=== PATIENT | female | born 1990 | race American Indian/Alaskan Native ===

== ENCOUNTER 2019-08-30 18:07 | Emergency (ER) | payer MEDICAID ==
--- NOTE | 2019-08-30 19:16 | Event Note ---
ED Screening Note Date of service: 08/30/19 Time: 19:15 ED Screening Note: 28 y o f presents with left knee swelling and pain s/p injury on a swing today This initial assessment/diagnostic orders/clinical plan/treatment(s) is/are subject to change based on patients health status, clinical progression and re- assessment by fellow clinical providers in the ED. Further treatment and workup at subsequent clinical providers discretion. Patient/guardian urged not to elope from the ED as their condition may be serious if not clinically assessed and managed. Initial orders include: knee xr acc eval
[2019-08-30 19:17] VITALS: BP 120/91
--- NOTE | 2019-08-30 20:22 | XRay Report ---
LEFT KNEE 3 VIEWS INDICATION / CLINICAL INFORMATION: swelling and pain. COMPARISON: None available. FINDINGS: No fracture or other significant skeletal abnormality. Lateral view shows no appreciable joint fluid. Signer Name: Seth Raygoza MD Signed: 08/30/2019 8:17 PM Workstation Name: [id number]
[2019-08-30] MEDS ORDERED: IBUPROFEN 400 MG TAB PO ONE (22:19)
[2019-08-30] MEDS ORDERED: HYDROcodone/ACETAMINOPHEN 5-325 MG TAB PO ONE (22:19)
--- NOTE | 2019-08-30 22:31 | Emergency Department Report ---
ED Fall HPI - General Chief Complaint: Extremity Injury, Lower Stated Complaint: LT KNEE INJURY Source: patient Mode of arrival: Stretcher - History of Present Illness Initial Comments: Patient is a 28-year-old female with a history of chronic seizures and congenital arthrogryposis who presents to the ED with complaint of acute onset severe left knee pain and swelling after she tripped and fell down on the field about 6 hours ago when playing with her 7-year-old child. Patient states that the swelling and the pain worsened in the last 2 hours side that bearing weight on the left leg makes the pain in the left knee worse. Patient denies loss of consciousness, syncope, dizziness, numbness and tingling of left leg, back pain, neck pain, head injury, abdominal pain, or headache. MD Complaint: fall, other (left knee pain and swelling) -: Sudden, hour(s) (6) Fall From: standing, other (running in the field and fell down) When Fall Occurred: 4-6 hours [employer] Fall Witnessed: yes, by family Place Fall Occurred: other (outdoors) Loss of Consciousness: none Prolonged Down Time?: no Symptoms Prior to Fall: none Location: other (left knee) Location - Extremities: Left: Knee (left knee pain) Severity: severe Severity scale (0 -10): 7 Quality: sharp, aching Context: tripped/slipped Associated Symptoms: denies: headache, neck pain, numbness, weakness, chest paint, abdominal pain, unable to walk, lightheaded - Related Data Home Medications Medication Instructions Recorded Confirmed Last Taken LaMICtal 100 mg PO QAM 01/28/15 01/28/15 Unknown LaMICtal 125 mg PO QPM 01/28/15 01/28/15 Unknown Previous Rx's Medication Instructions Recorded Last Taken Type levETIRAcetam [Keppra] 500 mg PO BID #60 tablet 01/28/15 Unknown Rx Acetaminophen/Codeine [Tylenol 1 tab PO Q6H PRN #12 tab 08/30/19 Unknown Rx /Codeine # 3 tab] Ibuprofen [Motrin] 400 mg PO Q8H PRN #24 tablet 08/30/19 Unknown Rx Allergies Allergy/AdvReac Type Severity Reaction Status Date / Time No Known Allergies Allergy Verified 08/30/19 18:09 ED Review of Systems ROS: Stated complaint: LT KNEE INJURY Other details as noted in HPI Constitutional: denies: chills, fever Eyes: denies: eye pain, eye discharge, vision change ENT: denies: ear pain, throat pain Respiratory: denies: cough, shortness of breath, wheezing Cardiovascular: denies: chest pain, palpitations Endocrine: no symptoms reported Gastrointestinal: denies: abdominal pain, nausea, diarrhea Genitourinary: denies: urgency, dysuria, discharge Musculoskeletal: joint swelling (left knee), arthralgia (left knee). denies: back pain Skin: denies: rash, lesions Neurological: denies: headache, weakness, paresthesias Psychiatric: denies: anxiety, depression Hematological/Lymphatic: denies: easy bleeding, easy bruising ED Past Medical Hx - Past Medical History Previous Medical History?: Yes Hx Seizures: Yes Additional medical history: arthrogryposis - Surgical History Past Surgical History?: Yes Additional Surgical History: multiple surgeries to knees, feet and legs,. c- section - Social History Smoking Status: Never Smoker Substance Use Type: None - Medications Home Medications: Home Medications Medication Instructions Recorded Confirmed Last Taken Type LaMICtal 100 mg PO QAM 01/28/15 01/28/15 Unknown History LaMICtal 125 mg PO QPM 01/28/15 01/28/15 Unknown History levETIRAcetam [Keppra] 500 mg PO BID #60 tablet 01/28/15 Unknown Rx Acetaminophen/Codeine [Tylenol 1 tab PO Q6H PRN #12 tab 08/30/19 Unknown Rx /Codeine # 3 tab] Ibuprofen [Motrin] 400 mg PO Q8H PRN #24 tablet 08/30/19 Unknown Rx ED Physical Exam - General Limitations: No Limitations General appearance: alert, in no apparent distress - Head Head exam: Present: atraumatic, normocephalic - Eye Eye exam: Present: normal appearance, PERRL, EOMI Pupils: Present: normal accommodation - ENT ENT exam: Present: normal exam, normal orophraynx, mucous membranes moist, TM's normal bilaterally, normal external ear exam - Neck Neck exam: Present: normal inspection, full ROM - Respiratory Respiratory exam: Present: normal lung sounds bilaterally. Absent: respiratory distress, wheezes, rales, rhonchi, chest wall tenderness, accessory muscle use, decreased breath sounds - Cardiovascular Cardiovascular Exam: Present: regular rate, normal rhythm, normal heart sounds. Absent: systolic murmur, diastolic murmur, rubs, gallop - GI/Abdominal GI/Abdominal exam: Present: soft, normal bowel sounds. Absent: tenderness, guarding, rebound, hyperactive bowel sounds, mass - Extremities Exam Extremities exam: Present: normal inspection, full ROM (Limited range of motion due to pain on the right knee), tenderness (palpable left knee tenderness with swelling and limited range of motion due to pain.), normal capillary refill, joint swelling (swollen left knee joint). Absent: calf tenderness - Back Exam Back exam: Present: normal inspection, full ROM. Absent: tenderness, CVA tenderness (R), muscle spasm, paraspinal tenderness - Neurological Exam Neurological exam: Present: alert, oriented X3, CN II-XII intact, normal gait, reflexes normal - Psychiatric Psychiatric exam: Present: normal affect, normal mood - Skin Skin exam: Present: warm, dry, intact, normal color. Absent: rash ED Course Vital Signs 08/30/19 19:14 Temperature 98.5 F Pulse Rate 67 Respiratory 18 Rate Blood Pressure 120/91 O2 Sat by Pulse 97 Oximetry - Reevaluation(s) Reevaluation #1: 08/30/19 22:37 This is a 28-year-old female with a history of chronic congenital arthrogryposis and seizures who presented to the ED with severe left knee pain and swelling after she slipped and fell down in the field when playing with her child. In the ED, patient is alert and oriented 3 and is not in distress. Patient was tr eated for pain and left knee x-ray shows no acute fracture or subluxations. Patient left knee worse splint and Lamont wrap patient is sent home on penicillin medications and also given crutches to aid in ambulation. Patient was advised to follow-up with her primary care physician in 7-10 days for reevaluation or return to the ED immediately if symptoms get worse. 08/30/19 22:39 ED Medical Decision Making - Radiology Data Radiology results: report reviewed, image reviewed Left knee x-ray shows no acute fractures or subluxations. - Medical Decision Making This is a 28-year-old female with a history of chronic congenital arthrogryposis and seizures who presented to the ED with severe left knee pain and swelling after she slipped and fell down in the field when playing with her child. In the ED, patient is alert and oriented 3 and is not in distress. Patient was treated for pain and left knee x-ray shows no acute fracture or subluxations. Patient left knee worse splint and Lamont wrap patient is sent home on penicillin medications and also given crutches to aid in ambulation. Patient was advised to follow-up with her primary care physician in 7-10 days for reevaluation or return to the ED immediately if symptoms get worse. - Differential Diagnosis left knee fracture; knee sprain; muscle strain; contusion Critical care attestation.: If time is entered above; I have spent that time in minutes in the direct care of this critically ill patient, excluding procedure time. ED Disposition Clinical Impression: Sprain of left knee/leg Qualifiers: Encounter type: initial encounter Qualified Code(s): S83.92XA - Sprain of unspecified site of left knee, initial encounter Contusion of left knee and lower leg Qualifiers: Encounter type: initial encounter Qualified Code(s): S80.02XA - Contusion of left knee, initial encounter; S80.12XA - Contusion of left lower leg, initial encounter Disposition: TO HOME OR SELFCARE Is pt being admited?: No Does the pt Need Aspirin: No Condition: Stable Instructions: Knee Sprain (ED), Muscle Strain (ED), Musculoskeletal Pain (ED) Additional Instructions: Take medication with food, drink plenty of fluids and follow-up with your primary care physician in 7-10 days for reevaluation. Return to the ED immediately if symptoms get worse. Prescriptions: Ibuprofen [Motrin] 400 mg PO Q8H PRN #24 tablet PRN Reason: Pain , Severe (7-10) Acetaminophen/Codeine [Tylenol /Codeine # 3 tab] 1 tab PO Q6H PRN #12 tab PRN Reason: Pain , Severe (7-10) Referrals: [facility] [Outside] - 3-5 Days Time of Disposition: 22:43 Print Language: SPANISH
== END 2019-08-30 23:35 | disposition home or self-care (01) ==
LOC: ED 18:07
DX: S83.92XA Sprain of unspecified site of left knee, initial encounter (principal); Z79.1 Long term (current) use of non-steroidal anti-inflammatories (NSAID); Z79.899 Other long term (current) drug therapy; W01.198A Fall on same level from slipping, tripping and stumbling with subsequent striking against other object, initial encounter; Y93.02 Activity, running; Y92.488 Other paved roadways as the place of occurrence of the external cause; Y99.8 Other external cause status